=== PATIENT | male | born 1980 | race Hispanic/Latino ===

== ENCOUNTER 2023-07-06 23:06 | Inpatient (IN) | payer SELFPAY ==
[2023-07-07] MEDS ORDERED: Senokot S 8.6-50 MG TAB PO PRN (01:32)
[2023-07-07] MEDS ORDERED: Guaifenesin DM 100-10/5 ML UDCUP PO PRN (01:32)
[2023-07-07] MEDS ORDERED: Dextrose 50% Abboject 50 ML SYRINGE SLOW IVP PRN (01:32)
[2023-07-07] MEDS ORDERED: Calcium Carbonate 500 MG ChewTAB PO PRN (01:32)
[2023-07-07] MEDS ORDERED: Glucagon 1 MG/ML KIT IM PRN (01:32)
[2023-07-07] MEDS ORDERED: Dextrose 5% in Water 1,000 ML IV PRN (01:32)
[2023-07-07] MEDS ORDERED: Lorazepam 2 MG/ML VIAL SLOW IVP PRN (01:35)
[2023-07-07 01:43] VITALS: BMI 25.7
[2023-07-07] MEDS: Morphine 2 MG/ML VIAL SLOW IVP PRN (01:55)
[2023-07-07] MEDS: Thiamine HCl 200 MG/2 ML VIAL SLOW IVP SCH (01:55)
[2023-07-07] MEDS: Lactated Ringer's 1,000 ML IV SCH (01:56)
[2023-07-07] MEDS: Cefepime 2 GM in Sodium Chloride 0.9% 100 ML IVPB SCH (01:56)
[2023-07-07] MEDS: Nicotine 14 MG PATCH TD SCH (01:57)
[2023-07-07 06:04] LABS: #Basophils 0.1 10x3/uL (0.0-0.2); #Monocytes 1.7 10x3/uL (0.0-1.1); #Neutrophils 11.2 10x3/uL (1.5-8.4); %Basophils 0.4 % (0.0-2.0); %Eosinophils 0.1 % (0.0-6.0); %Lymphocytes 8.2 % (18.0-47.0); %Monocytes 12.2 % (0.0-10.0); %Neutrophils 78.6 % (40.0-75.0); Hematocrit 33.9 % (38.8-50.0); Hemoglobin 12.1 g/dL (13.5-17.5); Mean Corpuscular HGB CONC 35.7 g/dL (32.0-36.0); Mean Corpuscular Volume 86.9 fl (81.2-95.1); Mean Platelet Volume 10.2 fl (7.4-10.4); Platelet Count 269 10x3/uL (150-450); RBC Distribution Width 11.8 % (11.5-14.5); White Blood Cell (WBC) Count 14.3 10x3/uL (3.5-10.5)
[2023-07-07 06:23] LABS: ALT (SGPT) 15 U/L (8-55); AST (SGOT) 22 U/L (5-34); Albumin 3.1 g/dL (3.5-5.0); Alkaline Phosphatase 116 U/L (40-110); Anion Gap 14 mmol/L (10-20); BUN (Urea Nitrogen) 6 mg/dL (8.9-20.6); Bilirubin, Total 1.2 mg/dL (0.2-1.2); Calc. Creatinine Clearance 148 mL/min (70-130); Calcium 7.9 mg/dL (7.8-10.44); Carbon Dioxide 18 mmol/L (22-29); Cardiac Risk 4.4 (Less than 4.5); Chloride 103 mmol/L (98-107); Cholesterol 144 mg/dl (< 200 Desired); Estimated GFR 121; Globulin 2.9 g/dL (2.4-3.5); Glucose 240 mg/dL (70-105); HDL Cholesterol 33 mg/dL (>60 Neg Risk); LDL Cholesterol, Calculated 84 mg/dL; Phosphorus 2.2 mg/dL (2.3-4.7); Potassium 3.8 mmol/L (3.5-5.1); Sodium 131 mmol/L (136-145); Triglycerides 133 mg/dL (Less than 150)
[2023-07-07] MEDS: glipiZIDE 5 MG TAB PO SCH (07:00)
[2023-07-07] MEDS: HumaLOG 300 UNITS/3 ML VIAL SC PRN (07:01)
[2023-07-07] MEDS: Enoxaparin 40 MG (0.4 mL) SYRINGE SC SCH (09:49)
[2023-07-07] MEDS: Fenofibrate Nanocrystallized 145 MG TAB PO SCH (09:49)
[2023-07-07] MEDS: Folic Acid 1 MG TAB PO SCH (09:49)
[2023-07-07] MEDS: Thiamine 100 MG TAB PO SCH (09:50)
[2023-07-07] MEDS: HYDROcodone/Acetaminophen 5/325 mg Tablet PO PRN (13:47)
[2023-07-07] MEDS ORDERED: Morphine 4 MG/ML VIAL SLOW IVP PRN (14:47)
[2023-07-07] MEDS: HYDROcodone/Acetaminophen 10/325 mg Tablet PO PRN (17:39)
[2023-07-07] MEDS: Ondansetron PF 4 MG/2 ML Vial IVP PRN (20:39)
[2023-07-07] MEDS: Acetaminophen 325 MG TAB PO PRN (23:42)
[2023-07-08 06:08] LABS: #Monocytes 1.4 10x3/uL (0.0-1.1); #Neutrophils 8.4 10x3/uL (1.5-8.4); %Basophils 0.3 % (0.0-2.0); %Eosinophils 0.1 % (0.0-6.0); %Lymphocytes 7.4 % (18.0-47.0); %Monocytes 13.2 % (0.0-10.0); %Neutrophils 78.4 % (40.0-75.0); Hematocrit 33.8 % (38.8-50.0); Hemoglobin 11.9 g/dL (13.5-17.5); Mean Corpuscular HGB CONC 35.2 g/dL (32.0-36.0); Mean Corpuscular Hemoglobin 30.8 pg (27.0-33.0); Mean Corpuscular Volume 87.6 fl (81.2-95.1); Mean Platelet Volume 9.6 fl (7.4-10.4); Platelet Count 261 10x3/uL (150-450); RBC Distribution Width 11.7 % (11.5-14.5); Red Blood Cell (RBC) Count 3.86 10x6/uL (4.32-5.72); White Blood Cell (WBC) Count 10.7 10x3/uL (3.5-10.5)
[2023-07-08 06:28] LABS: Anion Gap 13 mmol/L (10-20); BUN (Urea Nitrogen) 5 mg/dL (8.9-20.6); Calc. Creatinine Clearance 134 mL/min (70-130); Calcium 8.3 mg/dL (7.8-10.44); Carbon Dioxide 22 mmol/L (22-29); Chloride 98 mmol/L (98-107); Estimated GFR 117; Glucose 320 mg/dL (70-105); Potassium 3.6 mmol/L (3.5-5.1); Sodium 129 mmol/L (136-145)
[2023-07-08] MEDS: HumaLOG 300 UNITS/3 ML VIAL SC PRN (14:12)
[2023-07-09 04:24] LABS: Anion Gap 12 mmol/L (10-20); BUN (Urea Nitrogen) 4 mg/dL (8.9-20.6); Calc. Creatinine Clearance 138 mL/min (70-130); Calcium 8.4 mg/dL (7.8-10.44); Carbon Dioxide 25 mmol/L (22-29); Chloride 101 mmol/L (98-107); Estimated GFR 118; Glucose 209 mg/dL (70-105); Potassium 3.6 mmol/L (3.5-5.1); Sodium 134 mmol/L (136-145)
[2023-07-09] MEDS ORDERED: metFORMIN XR 500 MG ER.TAB PO SCH ×2 (08:00)
[2023-07-09] MEDS: glipiZIDE XL 5 mg ER.TAB PO SCH (08:30)
[2023-07-09 08:39] VITALS: BP 119/75; TEMP 98.2
== END 2023-07-09 10:50 | disposition home or self-care (01) | DRG 872 ==
LOC: CSHTELE 07-07 01:03 → OBSVTOIN 07-07 01:32
PROVIDERS: ADMIT Student in an Organized Health Care Education/Training Program; ATTEND Internal Medicine
DX: A41.59 Other Gram-negative sepsis (principal); N10 Acute pyelonephritis; E87.1 Hypo-osmolality and hyponatremia; R00.0 Tachycardia, unspecified; M54.50 Low back pain, unspecified; E78.1 Pure hyperglyceridemia; F17.210 Nicotine dependence, cigarettes, uncomplicated; E11.65 Type 2 diabetes mellitus with hyperglycemia; F10.10 Alcohol abuse, uncomplicated; Z91.119 Patient's noncompliance with dietary regimen due to unspecified reason; Z79.84 Long term (current) use of oral hypoglycemic drugs
CPT/HCPCS: 36415; 36416; 80048; 80053; 80061; 83036; 83735; 84100; 84145; 85025; J0692; J1650; J1815; J2272; J2405; J3411; J3490; J7120